=== PATIENT | male | born 2000 | race African-American/Black ===

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

== ENCOUNTER 2021-06-07 11:01 | Emergency (ER) | payer OTHER, MEDICAID ==
[~2021-06-07] VITALS: Ht 172.7 cm; Wt 79.0 kg
[2021-06-07 11:25] VITALS: BP 150/85
== END 2021-06-07 11:50 | disposition left against medical advice (07) ==
LOC: ER 11:01
DX: R05 Cough (principal); Z53.21 Procedure and treatment not carried out due to patient leaving prior to being seen by health care provider